=== PATIENT | male | born 1980 | race American Indian/Alaskan Native ===

== ENCOUNTER 2018-06-26 12:05 | Emergency (ER) | payer SELFPAY ==
[2018-06-26 12:24] VITALS: BP 124/75
[2018-06-26 13:35] LABS: Bilirubin,Urine NEG (Negative); Blood,Urine NEG (Negative); Color,Urine Yellow (Yellow); Mucus,Urine 2+ /HPF; Protein,Urine <15 mg/dL mg/dL (Negative)
[2018-06-26 14:04] LABS: Basophils % (Auto) 0.7 % (0.0-1.8); Eosinophils # (Auto) 0.1 K/mm3 (0.0-0.4); Eosinophils % (Auto) 1.3 % (0.0-4.3); Hematocrit 49.4 % (35.5-45.6); Hemoglobin 16.5 gm/dl (11.8-15.2); Lymphocytes # (Auto) 1.5 K/mm3 (1.2-5.4); Lymphocytes % (Auto) 32.2 % (13.4-35.0); Mean Corpuscular HGB Conc 33 % (32-34); Mean Corpuscular Hemoglobin 30 pg (28-32); Mean Corpuscular Volume 89 fl (84-94); Monocytes # (Auto) 0.4 K/mm3 (0.0-0.8); Monocytes % (Auto) 8.6 % (0.0-7.3); Platelet Count 227 K/mm3 (140-440); Red Blood Count 5.54 M/mm3 (3.65-5.03); Red Cell Distribution Width 14.5 % (13.2-15.2)
[2018-06-26 14:15] LABS: BUN/Creatinine Ratio 17; Blood Urea Nitrogen 22 mg/dL (9-20); Calcium 9.2 mg/dL (8.4-10.2); Hemolysis Index 8
[2018-06-26] MEDS ORDERED: TORADOL IM ONE (15:09)
[2018-06-26] MEDS ORDERED: DELTASONE PO ONE (15:09)
--- NOTE | 2018-06-26 15:14 | Emergency Department Report ---
ED Back Pain/Injury HPI - General Chief Complaint: Abdominal Pain Stated Complaint: low back pain Time Seen by Provider: 06/26/18 14:49 Source: patient Limitations: No Limitations - History of Present Illness MD Complaint: back pain -: Gradual, week(s) Similar Symptoms Previously: Yes ([facility] since apr with the same) Place: home Radiation: none Severity: mild Consistency: constant Improves With: none Worsens With: none Associated Symptoms: denies other symptoms, other (flexeril and motrin make him sleep) Treatments Prior to Arrival: other medications, prescription analgesics - Related Data Previous Rx's Medication Instructions Recorded Last Taken Type predniSONE [Deltasone] 50 mg PO QDAY #5 tab 06/26/18 Unknown Rx Allergies Allergy/AdvReac Type Severity Reaction Status Date / Time No Known Allergies Allergy Unverified 06/26/18 12:25 ED Review of Systems ROS: Stated complaint: LOWER BACK PAIN/CONSTANT URINATION Other details as noted in HPI Comment: All other systems reviewed and negative Constitutional: denies: chills, fever Eyes: denies: eye pain ENT: denies: ear pain, throat pain Respiratory: denies: cough, orthopnea Cardiovascular: denies: chest pain, palpitations Endocrine: denies: excessive sweating, flushing, intolerance to cold, intolerance to heat Gastrointestinal: denies: abdominal pain, nausea, vomiting, diarrhea, constipation, hematemesis, melena, hematochezia Genitourinary: denies: urgency, dysuria, frequency, hematuria, discharge, testicular pain, testicular mass Musculoskeletal: back pain. denies: joint swelling, arthralgia Skin: denies: rash, lesions, change in color, change in hair/nails, pruritus Neurological: denies: headache, weakness Psychiatric: denies: anxiety, depression Hematological/Lymphatic: denies: easy bleeding ED Past Medical Hx - Past Medical History Previous Medical History?: No - Surgical History Past Surgical History?: No - Family History Family history: no significant - Social History Smoking Status: Current Every Day Smoker Substance Use Type: Alcohol, Marijuana - Medications Home Medications: Home Medications Medication Instructions Recorded Confirmed Last Taken Type predniSONE [Deltasone] 50 mg PO QDAY #5 tab 06/26/18 Unknown Rx ED Physical Exam - General Limitations: No Limitations General appearance: alert, in no apparent distress - Head Head exam: Present: atraumatic, normocephalic - Eye Eye exam: Present: normal appearance - ENT ENT exam: Present: mucous membranes moist - Neck Neck exam: Present: normal inspection - Respiratory Respiratory exam: Present: normal lung sounds bilaterally - Cardiovascular Cardiovascular Exam: Present: regular rate - GI/Abdominal GI/Abdominal exam: Present: soft, normal bowel sounds. Absent: distended, tenderness, guarding, rebound, rigid, diminished bowel sounds, hyperactive bowel sounds, hypoactive bowel sounds, organomegaly, mass, bruit, pulsatile mass , hernia - Rectal Rectal exam: Present: deferred - Extremities Exam Extremities exam: Present: normal inspection, full ROM, normal capillary refill. Absent: tenderness, pedal edema, joint swelling - Back Exam Back exam: Present: normal inspection, full ROM, tenderness (l left lumbar paraspinal), CVA tenderness (L), muscle spasm, paraspinal tenderness. Absent: CVA tenderness (R), vertebral tenderness, rash noted - Neurological Exam Neurological exam: Present: alert, oriented X3, CN II-XII intact, normal gait, reflexes normal, other (neg straight leg left) - Psychiatric Psychiatric exam: Present: normal affect, normal mood - Skin Skin exam: Present: warm, dry, intact, normal color. Absent: rash ED Course Vital Signs 06/26/18 12:22 Temperature 99.3 F Pulse Rate 75 Respiratory 16 Rate Blood Pressure 124/75 O2 Sat by Pulse 99 Oximetry ED Medical Decision Making - Lab Data Result diagrams: 06/26/18 13:49 06/26/18 13:49 - Radiology Data Radiology results: report reviewed, image reviewed - Medical Decision Making [address] [place] [address] for same since apr no fall or trauma states from lifting at job. denies dysuria, hematuria, or discharge no flank tenderness ambulatory neuro intact no focal neuro def no incontinence no numbness of groin no point tenderness neg straight leg lift pos l paraspinal lumbar muscle spasm - Differential Diagnosis ro k stone; ro uti; ro sti; lumbar strain Critical care attestation.: If time is entered above; I have spent that time in minutes in the direct care of this critically ill patient, excluding procedure time. ED Disposition Clinical Impression: Back pain, Muscle spasm Disposition: DC- TO HOME OR SELFCARE Is pt being admited?: No Does the pt Need Aspirin: No Condition: Stable Instructions: Muscle Spasm (ED) Additional Instructions: rest good body mechanics hydrate well diet as tolerated activity as tolerated continue your flexeril and naprosyn follow up with pcp referral given here today when you go take all of your paper work from all hospitals with you. Prescriptions: predniSONE [Deltasone] 50 mg PO QDAY #5 tab Referrals: PRIMARY CAREMD [Primary Care Provider] - 3-5 Days BIANCA JACK MD [Staff Physician] - 3-5 Days Time of Disposition: 15:10
== END 2018-06-26 15:27 | disposition home or self-care (01) ==
LOC: ED 12:05
DX: M54.89 Other dorsalgia (principal); M62.830 Muscle spasm of back; F17.200 Nicotine dependence, unspecified, uncomplicated; F12.10 Cannabis abuse, uncomplicated
CPT/HCPCS: 36415; 80048; 81001; 82962; 85025; 96372; 99283; J1885; J7512

== ENCOUNTER 2018-07-12 11:25 | Emergency (ER) | payer OTHER ==
[2018-07-12] MEDS ORDERED: MORPHINE IV ONE ×2 (12:17→12:55)
--- NOTE | 2018-07-12 12:23 | Emergency Department Report ---
Blank Doc - Documentation Documentation: 38-year-old male with chest pain and shortness of breath early this morning. He states he has been having issues with right-sided chest pain for 2 months. Patient was seen and evaluated for this and told that it was muscle spasm. Was given prescription for Flexeril, which usually relieves the patient's pain. However pain unrelieved with Flexeril this morning. Pain also is now left-sided , feels like tightness, and reports shortness of breath with it. She also reports pleuritic component as well. Patient also admits to cocaine use last night. Patient appears to be very uncomfortable. Vital signs normal, EKG nonspecific. Will place pt on monitor, check labs, including troponin and d- dimer, obtained chest x-ray, medicate for pain.
[2018-07-12] MEDS ORDERED: VALIUM PO ONE (12:54)
[2018-07-12] MEDS ORDERED: NACL 0.9% 1000 ML 1,000 ML IV ONE ×2 (12:54→16:44)
--- NOTE | 2018-07-12 13:08 | Emergency Department Report ---
ED Chest Pain HPI - General Chief Complaint: Chest Pain Stated Complaint: CHEST PAIN Time Seen by Provider: 07/12/18 12:09 Source: patient Mode of arrival: Wheelchair Limitations: No Limitations - History of Present Illness Initial Comments: 38-year-old after Mexican male presents to the emergency department with complaint of a one-day history of some left-sided chest discomfort. The patient has a history of right-sided chest pain that he was told was muscle spasms that has been going on for the past few months, since April. He usually takes Flexeril for this right-sided chest pain with good improvement if not resolution, but it has not been working lately and did not work for the left -sided pain that started earlier today. The patient does admit to using some cocaine yesterday. He is a tobacco smoker. He also admits to some occasional alcohol use but nothing today. He does not have a primary care physician or outreach team member. He denies any other past medical history. No recent travel or sick contacts at home. - Related Data Previous Rx's Medication Instructions Recorded Last Taken Type predniSONE [Deltasone] 50 mg PO QDAY #5 tab 06/26/18 Unknown Rx Allergies Allergy/AdvReac Type Severity Reaction Status Date / Time No Known Allergies Allergy Verified 07/12/18 11:44 Heart Score - HEART Score History: Slightly suspicious EKG: Normal Age: < 45 Risk factors: 1-2 risk factors Troponin: < normal limit HEART Score: 1 - Critical Actions Critical Actions: 0-3 pts:0.9-1.7%risk of adverse cardiac event.Candidate for discharge ED Review of Systems ROS: Stated complaint: CHEST PAIN Other details as noted in HPI Comment: All other systems reviewed and negative Constitutional: denies: chills, fever Eyes: denies: eye pain, eye discharge, vision change ENT: denies: ear pain, throat pain Respiratory: denies: cough, wheezing Cardiovascular: chest pain. denies: palpitations Gastrointestinal: denies: abdominal pain, nausea, diarrhea Genitourinary: denies: urgency, dysuria Musculoskeletal: denies: back pain, joint swelling, arthralgia Skin: denies: rash, lesions Neurological: denies: headache, weakness, paresthesias ED Past Medical Hx - Past Medical History Previous Medical History?: No - Surgical History Past Surgical History?: No - Social History Smoking Status: Current Every Day Smoker Substance Use Type: None - Medications Home Medications: Home Medications Medication Instructions Recorded Confirmed Last Taken Type predniSONE [Deltasone] 50 mg PO QDAY #5 tab 06/26/18 Unknown Rx ED Physical Exam - General Limitations: No Limitations - Other Other exam information: GENERAL: The patient is well-developed well-nourished. HEENT: Normocephalic. Atraumatic. Patient has moist mucous membranes. EYES: Extraocular motions are intact. Pupils are equal and reactive to light bilaterally. NECK: Supple. Trachea is midline. CHEST/LUNGS: Clear to auscultation. There is no respiratory distress noted. Patient has reproducible chest wall pain to the generalized chest wall but no crepitus or deformity. HEART/CARDIOVASCULAR: Regular. There is no tachycardia. There is no gallop rub or murmur. ABDOMEN: Abdomen is soft, nontender. Patient has normal bowel sounds. There is no abdominal distention. SKIN: Skin is warm and dry. NEURO: The patient is awake, alert, and oriented. The patient is cooperative. The patient has no focal neurologic deficits. The patient has normal speech. MUSCULOSKELETAL: There is no tenderness or deformity. There is no limitation range of motion. There is no evidence of acute injury. ED Course Vital Signs 07/12/18 07/12/18 07/12/18 11:44 12:39 13:00 Temperature 97.8 F Pulse Rate 74 78 98 H Respiratory 16 14 16 Rate Blood Pressure 134/84 Blood Pressure 149/89 125/76 [Left] O2 Sat by Pulse 96 96 99 Oximetry 07/12/18 07/12/18 07/12/18 13:30 14:30 15:30 Temperature Pulse Rate 93 H 92 H 80 Respiratory 16 17 Rate Blood Pressure Blood Pressure 124/75 113/63 121/70 [Left] O2 Sat by Pulse 100 96 Oximetry 07/12/18 07/12/18 07/12/18 16:00 16:30 17:00 Temperature Pulse Rate 80 86 85 Respiratory 15 18 Rate Blood Pressure Blood Pressure 115/65 120/57 121/76 [Left] O2 Sat by Pulse 99 100 Oximetry 07/12/18 17:42 Temperature Pulse Rate 89 Respiratory 14 Rate Blood Pressure Blood Pressure 114/68 [Left] O2 Sat by Pulse 99 Oximetry MARQUEZ score - Marquez Score Age > 65: (0) No Aspirin use within the Past 7 Days: (0) No 3 or more CAD Risk Factors: (0) No 2 or more Angina events in past 24 hrs: (0) No Known CAD with more than 50% Stenosis: (0) No Elevated Cardiac Markers: (0) No ST Deviation Greater than 0.5mm: (0) No MARQUEZ Score: 0 ED Medical Decision Making - Lab Data Result diagrams: 07/12/18 15:42 07/12/18 13:39 - EKG Data -: EKG Interpreted by Me EKG shows normal: sinus rhythm, axis, intervals, QRS complexes, ST-T waves Rate: normal - EKG Data When compared to previous EKG there are: previous EKG unavailable Interpretation: normal EKG - Radiology Data Radiology results: image reviewed interpreted by me: Chest x-ray did not show any pleural effusion, focal consolidation, pneumothorax or obvious pneumonia. - Medical Decision Making This patient presents to the emergency department with a one-day history of some left-sided chest/chest wall pain that is different than his usual right chest wall pain/muscle spasms. However on the patient's chest pain is reproducible to palpation of the chest wall but no crepitus or deformity. EKG does not show any signs of ST elevation [place], ischemia or dysrhythmia. Labs have been unremarkable including negative troponins 2 and a negative d-dimer. Patient did admit to cocaine use but the urine drug screen was positive as well for amphetamine and marijuana. He was given some pain medication and IV fluid resuscitation. He was reevaluated multiple times for multiple hours and is feeling improved. Vital signs stable throughout his ED course. He is low on the Cowan score criteria. He has a low MARQUEZ score. For all these reasons patient appears safe for discharge home at this time but he has been given a referral for primary care and cardiology. He has been instructed to return to the emergency Department with any worsening of his symptoms or any acute distress. - Differential Diagnosis [place], costochondritis, muscle spasm, pneumonia Critical Care Time: No Critical care attestation.: If time is entered above; I have spent that time in minutes in the direct care of this critically ill patient, excluding procedure time. ED Disposition Clinical Impression: Chest wall pain, Polysubstance abuse Chest pain Qualifiers: Chest pain type: unspecified Qualified Code(s): R07.9 - Chest pain, unspecified Disposition: DC-01 TO HOME OR SELFCARE Is pt being admited?: No Condition: Stable Instructions: Chest Pain (ED), How to Stop Smoking (ED), Costochondritis (ED), Cocaine Abuse (ED) Additional Instructions: Please follow up with a primary care physician in the next few days and I am going to give you multiple primary care referrals. I am also giving him a referral for a local outreach team member, Dr. Arguelles, to follow up regarding your chest pain and for further evaluation. Please return to the emergency department immediately with any return of your chest pain, worsening of your symptoms, or with any acute distress. Try and quit smoking and I suggest staying away from any further illicit drug use/abuse. Referrals: PRIMARY CARE, [Primary Care Provider] - 2-3 Days BIANCA JACK MD [Staff Physician] - 2-3 Days CHANEL ARGUELLES MD [Staff Physician] - 2-3 Days SUE GUARDADO MD [Staff Physician] - 2-3 Days [facility] [Outside] - 2-3 Days Time of Disposition: 17:23
--- NOTE | 2018-07-12 13:20 | XRay Report ---
AP CHEST: HISTORY: chest pain AP view of the chest demonstrates a normal mediastinal and cardiac contour with clear lungs and normal bony and soft tissue structures. IMPRESSION: Unremarkable AP chest.
[2018-07-12] MEDS ORDERED: DILAUDID IV ONE (13:38)
[2018-07-12 14:08] LABS: INR 0.99 (0.87-1.13)
[2018-07-12 14:09] LABS: Partial Thromboplastin Time 24.5 Sec. (24.2-36.6)
[2018-07-12 14:18] LABS: BUN/Creatinine Ratio 7; Blood Urea Nitrogen 8 mg/dL (9-20); Calcium 8.6 mg/dL (8.4-10.2); Hemolysis Index 16
[2018-07-12 15:27] LABS: Hematocrit TNR % (35.5-45.6); Hemoglobin TNR gm/dl (11.8-15.2); Red Blood Count TNR M/mm3 (3.65-5.03)
[2018-07-12 15:28] LABS: Lymphocytes % (Auto) TNR % (13.4-35.0); Mean Corpuscular HGB Conc TNR % (32-34); Mean Corpuscular Hemoglobin TNR pg (28-32); Mean Corpuscular Volume TNR fl (84-94); Mean Platelet Volume TNR fl (6-12); Platelet Count TNR K/mm3 (140-440); Red Cell Distribution Width TNR % (13.2-15.2)
[2018-07-12 15:29] LABS: Basophils % (Auto) TNR % (0.0-1.8); Eosinophils # (Auto) TNR K/mm3 (0.0-0.4); Eosinophils % (Auto) TNR % (0.0-4.3); Lymphocytes # (Auto) TNR K/mm3 (1.2-5.4); Monocytes # (Auto) TNR K/mm3 (0.0-0.8); Monocytes % (Auto) TNR % (0.0-7.3)
[2018-07-12 15:30] LABS: Basophils # (Auto) TNR K/mm3 (0.0-0.1)
[2018-07-12 16:02] LABS: Basophils % (Auto) 0.6 % (0.0-1.8); Eosinophils % (Auto) 0.3 % (0.0-4.3); Hematocrit 44.2 % (35.5-45.6); Hemoglobin 15.4 gm/dl (11.8-15.2); Lymphocytes # (Auto) 1.9 K/mm3 (1.2-5.4); Lymphocytes % (Auto) 28.4 % (13.4-35.0); Mean Corpuscular HGB Conc 35 % (32-34); Mean Corpuscular Hemoglobin 30 pg (28-32); Mean Corpuscular Volume 87 fl (84-94); Monocytes # (Auto) 0.7 K/mm3 (0.0-0.8); Monocytes % (Auto) 10.1 % (0.0-7.3); Platelet Count 219 K/mm3 (140-440)
[2018-07-12 16:06] LABS: Benzodiazepines Screen,Urine PRESUMPTIVE NEGATIVE; Methadone Screen,Urine PRESUMPTIVE NEGATIVE; Opiate Screen,Urine PRESUMPTIVE NEGATIVE
[2018-07-12 16:20] LABS: Amphetamine Screen,Urine PRESUMPTIVE POSITIVE; Cannabinoid Screen,Urine PRESUMPTIVE POSITIVE; Cocaine Screen,Urine PRESUMPTIVE POSITIVE
[2018-07-12 17:43] VITALS: BP 114/68
== END 2018-07-12 15:45 | disposition home or self-care (01) ==
LOC: ED 11:25
DX: R07.89 Other chest pain (principal); F17.210 Nicotine dependence, cigarettes, uncomplicated; F14.10 Cocaine abuse, uncomplicated
CPT/HCPCS: 36415; 71045; 80048; 80307; 84484; 85025; 85379; 85610; 85730; 93005; 93010; 96374; 96375; 99284; J1170; J2270; J7030

== ENCOUNTER 2020-01-23 21:44 | Emergency (ER) | payer SELFPAY ==
[2020-01-23] MEDS: IBUPROFEN 800 MG TAB PO ONE (22:43)
--- NOTE | 2020-01-23 23:29 | XRay Report ---
CHEST 2 VIEWS 2370 INDICATION / CLINICAL INFORMATION: right side chest wall pain COMPARISON: 07/12/2018 FINDINGS: SUPPORT DEVICES: None. HEART / MEDIASTINUM: No significant abnormality. LUNGS / PLEURA: Increased markings was seen on the oblique lateral view in the lower posterior chest. These are difficult to identify well on the PA view which appears unchanged from prior study. Possib ly this just is artifact and overlapping normal structures due to the obliquity though I would have s ome difficulty in excluding developing infiltrate, particularly in the left lower lobe. No pleural ef fusions are seen. No pneumothorax. ADDITIONAL FINDINGS: No significant additional findings. IMPRESSION: Question of left lower lobe increased markings as discussed above which could represent e marlene pneumonitis but I suspect is actually artifactual. Recommend follow-up and clinical correlation. Signer Name: Tato Alberto MD Signed: 01/23/2020 11:25 PM Workstation Name: [id number]
--- NOTE | 2020-01-23 23:45 | Emergency Department Report ---
ED General Adult HPI - General Chief complaint: Chest Pain Stated complaint: RIGHT SIDE CHEST PAIN PUI?: No Time Seen by Provider: 01/23/20 22:34 Source: patient Mode of arrival: Ambulatory Limitations: No Limitations - History of Present Illness Initial comments: Mr Vicente is a 39 y/o aam who presents for right latera chest wall and rib pain x 2 days. pt states he was smoking marijuana and began to have pain with deep inspiration. pain is described as 4/10 sharp exacerbated by deep breathing and and palpation. pt denies fall, injury, or trauma. There is no sob, no dizziness, lightheadedenss or headache. There is no back pain. pt is a/o x3, ambulatory with steady gait. Onset/Timin -: days(s) Severity scale (0 -10): 3 Quality: sharp Consistency: intermittent Improves with: none Worsens with: movement Associated Symptoms: chest pain (right lateral chest wall pain ). denies: cough, fever/chills, headaches, nausea/vomiting, shortness of breath, weakness Treatments Prior to Arrival: none - Related Data Previous Rx's Medication Instructions Recorded Last Taken Type predniSONE [Deltasone] 50 mg PO QDAY #5 tab 06/26/18 Unknown Rx Albuterol INH(or & Nicu Only) 2 puff IH QID PRN #8.5 gram 01/24/20 Unknown Rx [ProAir HFA Inhaler] Azithromycin [Zithromax Z-PATRICIA] 250 mg PO DAILY #6 tab 01/24/20 Unknown Rx Ibuprofen [Motrin 800 MG tab] 800 mg PO Q8HR PRN #30 tablet 01/24/20 Unknown Rx Allergies Allergy/AdvReac Type Severity Reaction Status Date / Time No Known Allergies Allergy Verified 07/12/18 11:44 ED Review of Systems ROS: Stated complaint: RIGHT SIDE CHEST PAIN Other details as noted in HPI Constitutional: denies: chills, fever Eyes: denies: eye pain, eye discharge, vision change ENT: denies: ear pain, throat pain, congestion Respiratory: denies: cough, shortness of breath, SOB with exertion, wheezing Cardiovascular: chest pain (right lateral chest wall pain ). denies: palpitations, dyspnea on exertion, paroxysmal nocturnal dyspnea Endocrine: no symptoms reported Gastrointestinal: denies: abdominal pain, nausea, vomiting, diarrhea Genitourinary: denies: urgency, dysuria Musculoskeletal: denies: back pain, joint swelling, arthralgia Skin: denies: rash, lesions Neurological: denies: headache, weakness, paresthesias Psychiatric: denies: anxiety, depression Hematological/Lymphatic: denies: easy bleeding, easy bruising ED Past Medical Hx - Past Medical History Previous Medical History?: No Hx Congestive Heart Failure: No Hx Diabetes: No Hx Asthma: No Hx COPD: No - Surgical History Past Surgical History?: No - Social History Smoking Status: Current Every Day Smoker Substance Use Type: Alcohol, Cocaine - Medications Home Medications: Home Medications Medication Instructions Recorded Confirmed Last Taken Type predniSONE [Deltasone] 50 mg PO QDAY #5 tab 06/26/18 07/13/18 Unknown Rx Albuterol INH(or & Nicu Only) 2 puff IH QID PRN #8.5 gram 01/24/20 Unknown Rx [ProAir HFA Inhaler] Azithromycin [Zithromax Z-PATRICIA] 250 mg PO DAILY #6 tab 01/24/20 Unknown Rx Ibuprofen [Motrin 800 MG tab] 800 mg PO Q8HR PRN #30 tablet 01/24/20 Unknown Rx ED Physical Exam - General Limitations: No Limitations General appearance: alert, in no apparent distress - Head Head exam: Present: atraumatic, normocephalic - Eye Eye exam: Present: normal appearance Pupils: Present: normal accommodation - ENT ENT exam: Present: normal orophraynx, mucous membranes moist - Neck Neck exam: Present: normal inspection - Respiratory Respiratory exam: Present: normal lung sounds bilaterally, chest wall tenderness (right lateral ). Absent: respiratory distress, wheezes, stridor - Cardiovascular Cardiovascular Exam: Present: regular rate, normal rhythm, normal heart sounds. Absent: systolic murmur, diastolic murmur, rubs, gallop - GI/Abdominal GI/Abdominal exam: Present: soft, normal bowel sounds - Rectal Rectal exam: Present: deferred - Extremities Exam Extremities exam: Present: normal inspection, full ROM. Absent: tenderness - Back Exam Back exam: Present: normal inspection, full ROM. Absent: tenderness, CVA tenderness (R), CVA tenderness (L) - Neurological Exam Neurological exam: Present: alert, oriented X3, CN II-XII intact, normal gait - Psychiatric Psychiatric exam: Present: normal affect, normal mood - Skin Skin exam: Present: warm, dry, intact, normal color. Absent: rash ED Course Vital Signs 01/23/20 21:46 Temperature 98.3 F Pulse Rate 108 H Respiratory 18 Rate Blood Pressure 143/63 Blood Pressure 143/63 [Right] O2 Sat by Pulse 99 Oximetry ED Medical Decision Making - EKG Data EKG shows normal: sinus rhythm, axis, intervals, QRS complexes, ST-T waves Rate: normal - EKG Data When compared to previous EKG there are: previous EKG unavailable Interpretation: normal EKG (NSR No ST Elevated HI, ) - Radiology Data Radiology results: report reviewed, image reviewed Findings Reporting MD: Tato Alberto Dictation Time: January 23, 2020 22:25 Sodium Methylate Operator: Not available Brim Rounder Date: CHEST 2 VIEWS 2251 INDICATION / CLINICAL INFORMATION: right side chest wall pain COMPARISON: 07/12/2018 FINDINGS: SUPPORT DEVICES: None. HEART / MEDIASTINUM: No significant abnormality. LUNGS / PLEURA: Increased markings was seen on the oblique lateral view in the lower posterior chest. These are difficult to identify well on the PA view which appears unchanged from prior study. Possibly this just is artifact and overlapping normal structures due to the obliquity though I would have some difficulty in excluding developing infiltrate, particularly in the left lower lobe. No pleural effusions are seen. No pneumothorax. ADDITIONAL FINDINGS: No significant additional findings. IMPRESSION: Question of left lower lobe increased markings as discussed above which could represent early pneumonitis but I suspect is actually artifactual. Recommend follow-up and clinical correlation. Signer Name: Tato Alberto MD Signed: 01/23/2020 10:25 PM Workstation Name: [id number] - Medical Decision Making cxr ? inflitrate LLL plan, O2 sat 100 r/a, there is no fever, pt is a daily smoker, plan: albuterol inhaler, ibuprofen, Zpack, follow up with pcp in 2-3 days. Return to emergency is symptoms worsen. pt verbalized agreement and understanding of discharge plan. Critical care attestation.: If time is entered above; I have spent that time in minutes in the direct care of this critically ill patient, excluding procedure time. ED Disposition Clinical Impression: Chest wall pain, Marijuana abuse Disposition: - TO HOME OR SELFCARE Is pt being admited?: No Does the pt Need Aspirin: No Condition: Stable Instructions: Costochondritis (ED) Prescriptions: Ibuprofen [Motrin 800 MG tab] 800 mg PO Q8HR PRN #30 tablet PRN Reason: pain Albuterol INH(or & Nicu Only) [ProAir HFA Inhaler] 2 puff IH QID PRN #8.5 gram PRN Reason: Shortness Of Breath Azithromycin [Zithromax Z-PATRICIA] 250 mg PO DAILY #6 tab Referrals: ANDRESSA ABREU MD [Staff Physician] - 3-5 Days Forms: Work/School Release Form(ED) Time of Disposition: 00:02
[2020-01-24 00:14] VITALS: BP 131/80
== END 2020-01-24 00:14 | disposition home or self-care (01) ==
LOC: ED 21:44
DX: R07.89 Other chest pain (principal); F17.200 Nicotine dependence, unspecified, uncomplicated; F14.10 Cocaine abuse, uncomplicated; Z79.899 Other long term (current) drug therapy
CPT/HCPCS: 71046; 93005; 99283

== ENCOUNTER 2021-04-14 03:20 | Emergency (ER) | payer SELFPAY ==
[2021-04-14 03:33] VITALS: BP 139/65
--- NOTE | 2021-04-14 04:29 | Emergency Department Report ---
HPI - General Chief Complaint: Extremity Injury, Upper PUI?: No Time Seen by Provider: 04/14/21 03:31 - HPI HPI: 40-year-old male who presented to ER triage complaining of left arm numbness however patient eloped prior to evaluation ED Past Medical Hx - Past Medical History Previous Medical History?: No Hx Congestive Heart Failure: No Hx Diabetes: No Hx Asthma: No Hx COPD: No - Surgical History Past Surgical History?: No - Social History Smoking Status: Current Every Day Smoker Substance Use Type: Alcohol, Cocaine - Medications Home Medications: Home Medications Medication Instructions Recorded Confirmed Last Taken Type predniSONE [Deltasone] 50 mg PO QDAY #5 tab 06/26/18 07/13/18 Unknown Rx Albuterol Mdi (or & Nicu Only) 2 puff IH QID PRN #8.5 gram 01/24/20 Unknown Rx [ProAir HFA Inhaler] Azithromycin [Zithromax Z-PATRICIA] 250 mg PO DAILY #6 tab 01/24/20 Unknown Rx Ibuprofen [Motrin 800 MG tab] 800 mg PO Q8HR PRN #30 tablet 01/24/20 Unknown Rx ED Review of Systems ROS: Stated complaint: LT ARM NUMBNESS/CHEST PAINS Other details as noted in HPI Physical Exam - Physical Exam Vital Signs: Vital Signs 04/14/21 03:25 Temperature 98.2 F Pulse Rate 111 H Respiratory 18 Rate Blood Pressure 139/65 O2 Sat by Pulse 93 Oximetry ED Course Vital Signs 04/14/21 03:25 Temperature 98.2 F Pulse Rate 111 H Respiratory 18 Rate Blood Pressure 139/65 O2 Sat by Pulse 93 Oximetry ED Medical Decision Making - Medical Decision Making 40-year-old male presented to the emergency department complaining of left arm numbness however patient eloped prior to evaluation which would have included stroke alert and likely head CT with telemetry neurology consultation. Critical care attestation.: If time is entered above; I have spent that time in minutes in the direct care of this critically ill patient, excluding procedure time. ED Disposition Clinical Impression: Eloped from emergency department Disposition: PAT REG,TRIAGED-NO MSE Is pt being admited?: No Does the pt Need Aspirin: No Condition: Stable
== END 2021-04-14 03:35 | disposition left against medical advice (07) ==
LOC: ED 03:20
DX: R07.89 Other chest pain (principal); R20.0 Anesthesia of skin; Z53.21 Procedure and treatment not carried out due to patient leaving prior to being seen by health care provider